=== PATIENT | male | born 1975 ===

== ENCOUNTER → 2022-11-19 | Outpatient (REF) | payer SELFPAY ==
[2022-11-19 14:37] LABS: SOURCE, BODY FLUID RT KNEE
[2022-11-19 14:38] LABS: SYNOVIAL FLUID COLOR YELLOW (COLORLESS)
[2022-11-19 15:08] LABS: CRYSTALS, BODY FLUID NONE SEEN (NONE SEEN); SOURCE, BODY FLUID CRYSTALS RT KNEE
[2022-11-19 15:45] LABS: SOURCE, BODY FLUID GLUCOSE RT KNEE
[2022-11-22 11:09] LABS: LYME PCR FOR BODY FLUID Negative (Negative)
== END ==
LOC: M LAB REF 12:47
PROVIDERS: ATTEND Orthopaedic Surgery
DX: M25.461 Effusion, right knee (principal)